=== PATIENT | female | born 1970 | race African-American/Black ===

== ENCOUNTER 2017-03-11 16:06 | Inpatient (IN) | payer MEDICAID, OTHER ==
[~2017-03-11] VITALS: Ht 165.1 cm; Wt 61.3 kg
[~2017-03-11 16:06] MED LIST: BUPR100T5 PO; OLAN5Z PO; QUET400T PO
[2017-03-11 17:31] VITALS: BP 142/80
[2017-03-11] MEDS ORDERED: ZOLPIDEM TARTRATE 10 MG TABLET PO PRN (17:45)
[2017-03-11 18:26] VITALS: BP 155/86
[2017-03-11] MEDS: QUEtiapine FUMARATE 200 MG TABLET PO SCH (20:26)
[2017-03-11] MEDS: LORazepam 2 MG TABLET PO PRN (20:26)
[2017-03-11 21:22] VITALS: BP 130/72
[2017-03-12 08:08] VITALS: BP 124/82
[2017-03-12] MEDS ORDERED: MAGNESIUM HYDROXIDE SUSPENSION 30 ML UDCUP PO PRN (09:00)
[2017-03-12] MEDS ORDERED: LOPERAMIDE HCL 2 MG CAPSULE PO PRN (09:00)
[2017-03-12] MEDS ORDERED: ONDANSETRON HCL 4 MG TABLET PO PRN (09:00)
[2017-03-12] MEDS ORDERED: PETROLATUM,WHITE 71 GM JELLY TP PRN (09:00)
[2017-03-12] MEDS ORDERED: BENZOCAINE/MENTHOL LOZENGE MM PRN (09:00)
[2017-03-12] MEDS ORDERED: IBUPROFEN 600 MG TABLET PO PRN (09:00)
[2017-03-12] MEDS ORDERED: MAG HYDROX/AL HYDROX/SIMETH ES 30 ML SUSPENSION UDCUP PO PRN (09:00)
[2017-03-12] MEDS ORDERED: ACETAMINOPHEN 325 MG TABLET PO PRN (09:00)
[2017-03-12] MEDS ORDERED: CloNIDine HCL 0.1 MG TABLET PO PRN (09:00)
[2017-03-12] MEDS ORDERED: ALBUTEROL SULFATE HFA 90 MCG/PUFF 8 GM INHALER IH PRN (09:00)
[2017-03-12] MEDS ORDERED: BACITRACIN 28.4 GM OINTMENT TP PRN (09:00)
[2017-03-12] MEDS: MULTIVITAMINS WITH MINERALS, THERAPEUTIC TABLET PO SCH (10:27)
[2017-03-12] MEDS: CHOLECALCIFEROL (VIT D3) 1,000 UNITS TABLET PO SCH (10:27)
[2017-03-12 16:03] VITALS: BP 105/61
[2017-03-12] MEDS: QUEtiapine FUMARATE 200 MG TABLET PO SCH (20:56)
[2017-03-13 06:21] VITALS: BP 115/70
[2017-03-13 08:34] LABS: BASOPHILS % (AUTO) 0.7 % (0.0-2.0); EOSINOPHILS % (AUTO) 1.3 % (1.0-6.0); HEMATOCRIT 23.5 % (36-46); HEMOGLOBIN 7.1 g/dL (12.0-16.0); LYMPHOCYTES # (AUTO) 1.2 K/uL (1.0-4.8); LYMPHOCYTES % (AUTO) 26.9 % (22.0-44.0); MEAN CORPUSCULAR HEMOGLOBIN 18.7 pg (26.0-34.0); MEAN CORPUSCULAR VOLUME 62 fL (80-100); MONOCYTES # (AUTO) 0.4 K/uL (0.1-1.0); NEUTROPHILS # (AUTO) 2.7 K/uL (1.8-7.7); NEUTROPHILS % (AUTO) 62.1 % (40.0-70.0); PLATELET COUNT (AUTO) 224 K/uL (150-450); RED BLOOD CELL COUNT(AUTO) 3.77 MIL/uL (4.00-5.20); RED CELL DISTRIBUTION WIDTH 20.3 % (11.5-14.5); WHITE BLOOD COUNT (AUTO) 4.4 K/uL (4.5-11.0)
[2017-03-13] MEDS: MULTIVITAMINS WITH MINERALS, THERAPEUTIC TABLET PO SCH (08:44)
[2017-03-13] MEDS: CHOLECALCIFEROL (VIT D3) 1,000 UNITS TABLET PO SCH (08:44)
[2017-03-13 09:18] VITALS: BP 121/75
[2017-03-13 09:21] LABS: ALANINE AMINOTRANSFERASE 18 U/L (12-78); ALBUMIN 2.9 g/dL (3.4-5.0); ANION GAP 6 mmol/L (8-16); ASPARTATE AMINOTRANSFERASE 14 U/L (15-37); BILIRUBIN,TOTAL 0.2 mg/dL (0.1-1.0); CALCIUM, TOTAL 8.6 mg/dL (8.8-10.5); CARBON DIOXIDE 32 mmol/L (22-29); CHLORIDE 105 mmol/L (98-107); CREATININE 0.68 mg/dL (0.60-1.30); GLOMERULAR FILTR. RATE CALC > 60 mL/min (>60); POTASSIUM 3.8 mmol/L (3.5-5.1); SODIUM SERUM 143 mmol/L (136-145); TOTAL PROTEIN, SERUM 5.6 g/dL (6.4-8.2); UREA NITROGEN, BLOOD 23 mg/dL (7-18)
[2017-03-13 16:25] VITALS: BP 116/67
[2017-03-13] MEDS: QUEtiapine FUMARATE 200 MG TABLET PO SCH (20:31)
[2017-03-14 04:58] VITALS: BP 123/70
[2017-03-14] MEDS: FERROUS SULFATE 325 MG EC TABLET PO SCH ×2 (06:42→16:37)
[2017-03-14 08:08] VITALS: BP 124/71
[2017-03-14] MEDS: CHOLECALCIFEROL (VIT D3) 1,000 UNITS TABLET PO SCH (08:39)
[2017-03-14] MEDS: MULTIVITAMINS WITH MINERALS, THERAPEUTIC TABLET PO SCH (08:39)
[2017-03-14 16:00] VITALS: BP 110/63
[2017-03-14] MEDS: LORazepam 2 MG TABLET PO PRN (16:37)
[2017-03-14] MEDS: QUEtiapine FUMARATE 100 MG TABLET PO PRN (16:37)
[2017-03-14] MEDS: QUEtiapine FUMARATE 200 MG TABLET PO SCH (20:22)
[2017-03-15] MEDS: FERROUS SULFATE 325 MG EC TABLET PO SCH ×3 (06:37→16:25)
[2017-03-15 08:03] LABS: BASOPHILS % (AUTO) 0.6 % (0.0-2.0); EOSINOPHILS % (AUTO) 3.7 % (1.0-6.0); HEMATOCRIT 23.8 % (36-46); HEMOGLOBIN 7.1 g/dL (12.0-16.0); LYMPHOCYTES # (AUTO) 1.6 K/uL (1.0-4.8); LYMPHOCYTES % (AUTO) 39.1 % (22.0-44.0); MEAN CORPUSCULAR HEMOGLOBIN 18.8 pg (26.0-34.0); MEAN CORPUSCULAR HGB CONC 29.9 G/dL (31.0-37.0); MEAN CORPUSCULAR VOLUME 63 fL (80-100); MONOCYTES # (AUTO) 0.3 K/uL (0.1-1.0); MONOCYTES % (AUTO) 7.2 % (2.0-9.0); NEUTROPHILS % (AUTO) 49.4 % (40.0-70.0); PLATELET COUNT (AUTO) 203 K/uL (150-450); RED CELL DISTRIBUTION WIDTH 19.7 % (11.5-14.5)
[2017-03-15] MEDS: CHOLECALCIFEROL (VIT D3) 1,000 UNITS TABLET PO SCH (08:51)
[2017-03-15] MEDS: MULTIVITAMINS WITH MINERALS, THERAPEUTIC TABLET PO SCH (08:51)
[2017-03-15] MEDS: QUEtiapine FUMARATE 100 MG TABLET PO PRN ×2 (08:51→16:26)
[2017-03-15] MEDS: LORazepam 2 MG TABLET PO PRN ×2 (08:51→16:26)
[2017-03-15] MEDS: DOCUSATE SODIUM 100 MG CAPSULE PO SCH (08:55)
[2017-03-15 09:34] LABS: RBC MORPHOLOGY COMMENT ABNORMAL RBC MORPH
[2017-03-15] MEDS: QUEtiapine FUMARATE 200 MG TABLET PO SCH (20:58)
[2017-03-16 05:35] VITALS: BP 109/80
[2017-03-16] MEDS: FERROUS SULFATE 325 MG EC TABLET PO SCH ×3 (06:42→17:03)
[2017-03-16] MEDS: DOCUSATE SODIUM 100 MG CAPSULE PO SCH (08:49)
[2017-03-16] MEDS: MULTIVITAMINS WITH MINERALS, THERAPEUTIC TABLET PO SCH (08:49)
[2017-03-16] MEDS: CHOLECALCIFEROL (VIT D3) 1,000 UNITS TABLET PO SCH (08:49)
[2017-03-16] MEDS ORDERED: FERS325 PO (15:08)
[2017-03-16] MEDS ORDERED: VITAD400 PO (15:08)
[2017-03-16] MEDS ORDERED: DSS100 PO (15:08)
[2017-03-16 16:05] VITALS: BP 124/89
== END 2017-03-16 17:05 | disposition home or self-care (01) | DRG 750 ==
LOC: B3A 17:46
DX: F25.1 Schizoaffective disorder, depressive type (principal); E55.9 Vitamin D deficiency, unspecified; F15.10 Other stimulant abuse, uncomplicated; D50.9 Iron deficiency anemia, unspecified; F17.210 Nicotine dependence, cigarettes, uncomplicated; F14.90 Cocaine use, unspecified, uncomplicated; G47.00 Insomnia, unspecified; Z71.6 Tobacco abuse counseling; Z59.0 Homelessness; Z71.51 Drug abuse counseling and surveillance of drug abuser; Z56.0 Unemployment, unspecified
CPT/HCPCS: 83540; 83550

== ENCOUNTER 2017-08-11 10:40 | Emergency (ER) | payer MEDICAID, OTHER ==
[~2017-08-11] VITALS: Ht 172.7 cm; Wt 65.9 kg
[~2017-08-11 10:40] MED LIST changes: -BUPR100T5 PO; +DSS100 PO; +FERR-89 PO; -OLAN5Z PO; +VITAD400 PO
[2017-08-11 13:45] VITALS: BP 88/47
== END 2017-08-11 15:51 | disposition left against medical advice (07) ==
LOC: EMS 10:43
DX: F91.9 Conduct disorder, unspecified (principal); F31.9 Bipolar disorder, unspecified; F20.9 Schizophrenia, unspecified; F19.90 Other psychoactive substance use, unspecified, uncomplicated
CPT/HCPCS: 99284

== ENCOUNTER 2017-10-26 14:57 | Inpatient (IN) | payer MEDICAID, OTHER ==
[~2017-10-26] VITALS: Ht 165.1 cm; Wt 59.1 kg
[2017-10-26 15:55] LABS: HEMATOCRIT 22.9 % (36-46); MEAN CORPUSCULAR HEMOGLOBIN 16.6 pg (26.0-34.0); MEAN CORPUSCULAR HGB CONC 30.3 G/dL (31.0-37.0); MEAN CORPUSCULAR VOLUME 55 fL (80-100); PLATELET COUNT (AUTO) 299 K/uL (150-450); RED CELL DISTRIBUTION WIDTH 20.6 % (11.5-14.5); WHITE BLOOD COUNT (AUTO) 6.8 K/uL (4.5-11.0)
[2017-10-26 16:06] LABS: CALCIUM, TOTAL 9.1 mg/dL (8.8-10.5); CREATININE 1.27 mg/dL (0.60-1.30); POTASSIUM 3.3 mmol/L (3.5-5.1)
[2017-10-26 16:11] LABS: ALBUMIN 4.2 g/dL (3.4-5.0); BILIRUBIN,TOTAL 0.3 mg/dL (0.1-1.0); TOTAL PROTEIN, SERUM 7.9 g/dL (6.4-8.2)
[2017-10-26 16:29] LABS: BAND NEUTROPHILS % (MANUAL) 4 % (1-5); LYMPHOCYTES % (MANUAL) 31 % (22-44); RBC MORPHOLOGY COMMENT ABNORMAL RBC MORPH; TOTAL CELLS COUNTED 100
[2017-10-26] MEDS ORDERED: LORazepam 2 MG TABLET PO PRN (18:30)
[2017-10-26] MEDS ORDERED: HALOPERIDOL 5 MG TABLET PO PRN (18:30)
[2017-10-26] MEDS ORDERED: ZOLPIDEM TARTRATE 10 MG TABLET PO PRN (18:30)
[2017-10-26] MEDS ORDERED: POTASSIUM CHLORIDE 20 MEQ ER TABLET PO ONE (19:15)
[2017-10-26] MEDS: LORazepam 2 MG TABLET PO PRN (20:12)
[2017-10-26] MEDS: ZOLPIDEM TARTRATE 10 MG TABLET PO PRN (20:13)
[2017-10-27 03:20] VITALS: BP 113/65
[2017-10-27] MEDS: HALOPERIDOL 5 MG TABLET PO PRN (03:23)
[2017-10-27] MEDS: LORazepam 2 MG TABLET PO PRN ×3 (03:23→20:53)
[2017-10-27 08:30] VITALS: BP 94/55
[2017-10-27 08:36] LABS: CHOL/HDL RATIO 1.9 (3.9-5.7); POTASSIUM 3.5 mmol/L (3.5-5.1)
[2017-10-27] MEDS ORDERED: IBUPROFEN 400 MG TABLET PO PRN (12:15)
[2017-10-27] MEDS ORDERED: ACETAMINOPHEN 325 MG TABLET PO PRN (12:15)
[2017-10-27] MEDS: FERROUS SULFATE 325 MG EC TABLET PO SCH (16:10)
[2017-10-27 16:17] VITALS: BP 110/74
[2017-10-27] MEDS: ZOLPIDEM TARTRATE 10 MG TABLET PO PRN (20:53)
[2017-10-28] MEDS: LORazepam 2 MG TABLET PO PRN ×3 (02:26→20:16)
[2017-10-28] MEDS: FERROUS SULFATE 325 MG EC TABLET PO SCH ×3 (06:26→16:43)
[2017-10-28 07:09] VITALS: BP 115/72
[2017-10-28 08:51] VITALS: BP 120/75
[2017-10-28] MEDS: QUEtiapine FUMARATE 200 MG TABLET PO SCH ×2 (08:59→16:04)
[2017-10-28] MEDS: DOCUSATE SODIUM 100 MG CAPSULE PO SCH (08:59)
[2017-10-28] MEDS: CHOLECALCIFEROL (VIT D3) 400 UNITS TABLET PO SCH (08:59)
[2017-10-28] MEDS: ZOLPIDEM TARTRATE 10 MG TABLET PO PRN (20:16)
[2017-10-29] MEDS: FERROUS SULFATE 325 MG EC TABLET PO SCH ×3 (06:41→16:14)
[2017-10-29 08:30] VITALS: BP 118/74
[2017-10-29] MEDS: CHOLECALCIFEROL (VIT D3) 400 UNITS TABLET PO SCH (09:17)
[2017-10-29] MEDS: QUEtiapine FUMARATE 200 MG TABLET PO SCH ×2 (09:17→16:14)
[2017-10-29] MEDS: DOCUSATE SODIUM 100 MG CAPSULE PO SCH (09:17)
[2017-10-29] MEDS: LORazepam 2 MG TABLET PO PRN ×2 (14:02→20:55)
[2017-10-29 16:07] VITALS: BP_SYST 109
[2017-10-30] MEDS: FERROUS SULFATE 325 MG EC TABLET PO SCH ×3 (06:45→16:14)
[2017-10-30 08:31] VITALS: BP 119/79
[2017-10-30] MEDS: CHOLECALCIFEROL (VIT D3) 400 UNITS TABLET PO SCH (08:54)
[2017-10-30] MEDS: QUEtiapine FUMARATE 200 MG TABLET PO SCH ×2 (08:54→16:14)
[2017-10-30] MEDS: DOCUSATE SODIUM 100 MG CAPSULE PO SCH (08:54)
[2017-10-30] MEDS: LORazepam 2 MG TABLET PO PRN (12:34)
[2017-10-30 16:09] VITALS: BP 106/60
[2017-10-30] MEDS: HALOPERIDOL 5 MG TABLET PO PRN (16:14)
[2017-10-30] MEDS: ZOLPIDEM TARTRATE 10 MG TABLET PO PRN (21:03)
[2017-10-31] MEDS: FERROUS SULFATE 325 MG EC TABLET PO SCH ×3 (06:31→16:40)
[2017-10-31] MEDS: QUEtiapine FUMARATE 200 MG TABLET PO SCH ×2 (08:22→16:40)
[2017-10-31] MEDS: DOCUSATE SODIUM 100 MG CAPSULE PO SCH (08:22)
[2017-10-31] MEDS: CHOLECALCIFEROL (VIT D3) 400 UNITS TABLET PO SCH (08:22)
[2017-10-31 08:32] LABS: HEMATOCRIT 24.1 % (36-46); HEMOGLOBIN 7.2 g/dL (12.0-16.0); MEAN CORPUSCULAR HEMOGLOBIN 17.2 pg (26.0-34.0); MEAN CORPUSCULAR HGB CONC 29.7 G/dL (31.0-37.0); MEAN CORPUSCULAR VOLUME 58 fL (80-100); PLATELET COUNT (AUTO) 358 K/uL (150-450); RED BLOOD CELL COUNT(AUTO) 4.17 MIL/uL (4.00-5.20); RED CELL DISTRIBUTION WIDTH 21.1 % (11.5-14.5); WHITE BLOOD COUNT (AUTO) 5.2 K/uL (4.5-11.0)
[2017-10-31 09:30] LABS: BAND NEUTROPHILS % (MANUAL) 2 % (1-5); LYMPHOCYTES % (MANUAL) 28 % (22-44); TOTAL CELLS COUNTED 100
[2017-10-31 09:33] LABS: RBC MORPHOLOGY COMMENT ABNORMAL R
[2017-10-31 16:31] VITALS: BP 118/78
[2017-11-01] MEDS: FERROUS SULFATE 325 MG EC TABLET PO SCH ×3 (06:45→16:59)
[2017-11-01] MEDS: HALOPERIDOL 5 MG TABLET PO PRN (08:12)
[2017-11-01] MEDS: QUEtiapine FUMARATE 200 MG TABLET PO SCH ×2 (08:12→16:59)
[2017-11-01] MEDS: DOCUSATE SODIUM 100 MG CAPSULE PO SCH (08:12)
[2017-11-01] MEDS: CHOLECALCIFEROL (VIT D3) 400 UNITS TABLET PO SCH (08:12)
[2017-11-01] MEDS: LORazepam 2 MG TABLET PO PRN (08:12)
[2017-11-01 08:49] VITALS: BP 116/76
[2017-11-01 17:30] VITALS: BP 105/61
[2017-11-02] MEDS: ZOLPIDEM TARTRATE 10 MG TABLET PO PRN (02:28)
[2017-11-02 05:04] VITALS: BP 122/78
[2017-11-02] MEDS: FERROUS SULFATE 325 MG EC TABLET PO SCH ×3 (06:25→17:02)
[2017-11-02 08:41] VITALS: BP 118/76
[2017-11-02] MEDS: QUEtiapine FUMARATE 200 MG TABLET PO SCH ×2 (08:41→17:02)
[2017-11-02] MEDS: CHOLECALCIFEROL (VIT D3) 400 UNITS TABLET PO SCH (08:41)
[2017-11-02] MEDS: DOCUSATE SODIUM 100 MG CAPSULE PO SCH (08:41)
[2017-11-02 16:00] VITALS: BP 117/67
[2017-11-03 06:25] VITALS: BP 116/76
[2017-11-03] MEDS: FERROUS SULFATE 325 MG EC TABLET PO SCH ×3 (06:34→16:20)
[2017-11-03] MEDS: CHOLECALCIFEROL (VIT D3) 400 UNITS TABLET PO SCH (08:21)
[2017-11-03] MEDS: QUEtiapine FUMARATE 200 MG TABLET PO SCH ×2 (08:21→16:20)
[2017-11-03] MEDS: DOCUSATE SODIUM 100 MG CAPSULE PO SCH (08:21)
[2017-11-03 08:30] VITALS: BP 118/70
[2017-11-03] MEDS: LORazepam 2 MG TABLET PO PRN (12:33)
[2017-11-03 16:50] VITALS: BP 110/73
[2017-11-04 06:19] VITALS: BP 113/78
[2017-11-04] MEDS: FERROUS SULFATE 325 MG EC TABLET PO SCH ×3 (06:23→16:53)
[2017-11-04] MEDS: DOCUSATE SODIUM 100 MG CAPSULE PO SCH (08:16)
[2017-11-04] MEDS: QUEtiapine FUMARATE 200 MG TABLET PO SCH ×2 (08:16→16:53)
[2017-11-04] MEDS: CHOLECALCIFEROL (VIT D3) 400 UNITS TABLET PO SCH (08:16)
[2017-11-04 08:19] VITALS: BP 111/72
[2017-11-04] MEDS: LORazepam 2 MG TABLET PO PRN ×2 (12:25→16:53)
[2017-11-04 17:26] VITALS: BP 105/64
[2017-11-05 02:51] VITALS: BP 108/69
[2017-11-05] MEDS: LORazepam 2 MG TABLET PO PRN (04:07)
[2017-11-05] MEDS: FERROUS SULFATE 325 MG EC TABLET PO SCH ×2 (06:47→11:18)
[2017-11-05 08:00] VITALS: BP 119/78
[2017-11-05] MEDS: QUEtiapine FUMARATE 200 MG TABLET PO SCH (08:31)
[2017-11-05] MEDS: DOCUSATE SODIUM 100 MG CAPSULE PO SCH (08:31)
[2017-11-05] MEDS: CHOLECALCIFEROL (VIT D3) 400 UNITS TABLET PO SCH (08:31)
== END 2017-11-05 15:45 | disposition home or self-care (01) | DRG 750 ==
LOC: EMS 14:58 → B3A 18:54
PROVIDERS: ADMIT Psychiatry & Neurology Psychiatry; ATTEND Psychiatry & Neurology Psychiatry
DX: F20.0 Paranoid schizophrenia (principal); R45.851 Suicidal ideations; Z59.0 Homelessness; E55.9 Vitamin D deficiency, unspecified; D64.9 Anemia, unspecified; E87.6 Hypokalemia; K59.09 Other constipation; F32.9 Major depressive disorder, single episode, unspecified
CPT/HCPCS: 84132; 99285; G0480

== ENCOUNTER 2018-06-12 20:52 | Emergency (ER) | payer MEDICAID, OTHER ==
[~2018-06-12] VITALS: Ht 165.1 cm; Wt 75.0 kg
[2018-06-12 21:04] VITALS: BP 150/100
[2018-06-12] MEDS ORDERED: BUPR-93 PO (21:15)
[2018-06-12 21:56] LABS: BASOPHILS % (AUTO) 0.5 % (0.0-2.0); EOSINOPHILS % (AUTO) 0.5 % (1.0-6.0); HEMATOCRIT 34.2 % (36-46); HEMOGLOBIN 10.9 g/dL (12.0-16.0); LYMPHOCYTES # (AUTO) 1.3 K/uL (1.0-4.8); LYMPHOCYTES % (AUTO) 15.8 % (22.0-44.0); MEAN CORPUSCULAR HGB CONC 31.9 G/dL (31.0-37.0); MEAN CORPUSCULAR VOLUME 66 fL (80-100); MONOCYTES # (AUTO) 1.1 K/uL (0.1-1.0); MONOCYTES % (AUTO) 12.9 % (2.0-9.0); NEUTROPHILS % (AUTO) 70.3 % (40.0-70.0); PLATELET COUNT (AUTO) 228 K/uL (150-450); RED BLOOD CELL COUNT(AUTO) 5.19 MIL/uL (4.00-5.20); RED CELL DISTRIBUTION WIDTH 24.5 % (11.5-14.5)
[2018-06-12 22:06] LABS: ANION GAP 12 mmol/L (8-16); CALCIUM, TOTAL 8.8 mg/dL (8.8-10.5); CARBON DIOXIDE 25 mmol/L (22-29); CHLORIDE 105 mmol/L (98-107); CREATININE 1.72 mg/dL (0.60-1.30); GLOMERULAR FILTR. RATE CALC 39 mL/min (>60); GLUCOSE,RANDOM 126 mg/dL (70-110); POTASSIUM 3.8 mmol/L (3.5-5.1); SODIUM SERUM 142 mmol/L (136-145); UREA NITROGEN, BLOOD 44 mg/dL (7-18)
[2018-06-12 22:17] LABS: ALANINE AMINOTRANSFERASE 39 U/L (12-78); ALBUMIN 3.9 g/dL (3.4-5.0); ALKALINE PHOSPHATASE 81 U/L (46-116); ASPARTATE AMINOTRANSFERASE 29 U/L (15-37); BILIRUBIN,TOTAL 0.2 mg/dL (0.1-1.0); TOTAL PROTEIN, SERUM 7.8 g/dL (6.4-8.2)
[2018-06-13] MEDS ORDERED: QUEtiapine FUMARATE 100 MG TABLET PO ONE (02:15)
== END 2018-06-13 03:35 | disposition home or self-care (01) ==
LOC: EMS 20:53
DX: S00.12XA Contusion of left eyelid and periocular area, initial encounter (principal); B35.4 Tinea corporis; E86.0 Dehydration; F15.10 Other stimulant abuse, uncomplicated; F20.9 Schizophrenia, unspecified; Z59.0 Homelessness; Z79.899 Other long term (current) drug therapy; X58.XXXA Exposure to other specified factors, initial encounter; Y93.89 Activity, other specified; Y92.89 Other specified places as the place of occurrence of the external cause; Y99.8 Other external cause status
CPT/HCPCS: 36415; 80053; 85025; 99284; G0480

== ENCOUNTER 2020-03-25 19:46 | Emergency (ER) | payer OTHER ==
[~2020-03-25] VITALS: Ht 167.6 cm; Wt 74.5 kg
[~2020-03-25 19:46] MED LIST changes: +BUPR-93 PO; -DSS100 PO; -FERR-89 PO; -VITAD400 PO
[2020-03-25 20:51] LABS: BASOPHILS % (AUTO) 0.5 % (0.0-2.0); EOSINOPHILS % (AUTO) 1.7 % (1.0-6.0); HEMATOCRIT 35.6 % (36-46); HEMOGLOBIN 11.6 g/dL (12.0-16.0); LYMPHOCYTES # (AUTO) 1.9 K/uL (1.0-4.8); LYMPHOCYTES % (AUTO) 26.2 % (22.0-44.0); MEAN CORPUSCULAR HEMOGLOBIN 25.4 pg (26.0-34.0); MEAN CORPUSCULAR HGB CONC 32.5 G/dL (31.0-37.0); MEAN CORPUSCULAR VOLUME 78 fL (80-100); MONOCYTES # (AUTO) 0.9 K/uL (0.1-1.0); NEUTROPHILS # (AUTO) 4.2 K/uL (1.8-7.7); NEUTROPHILS % (AUTO) 58.6 % (40.0-70.0); PLATELET COUNT (AUTO) 272 K/uL (150-450); RED BLOOD CELL COUNT(AUTO) 4.56 MIL/uL (4.00-5.20); RED CELL DISTRIBUTION WIDTH 15.7 % (11.5-14.5)
[2020-03-25 21:09] LABS: ALANINE AMINOTRANSFERASE 17 U/L (12-78); ALBUMIN 3.6 g/dL (3.4-5.0); ALKALINE PHOSPHATASE 98 U/L (46-116); ANION GAP 8 mmol/L (8-16); ASPARTATE AMINOTRANSFERASE 13 U/L (15-37); BILIRUBIN,TOTAL 0.4 mg/dL (0.1-1.0); CALCIUM, TOTAL 9.6 mg/dL (8.8-10.5); CARBON DIOXIDE 31 mmol/L (22-29); CHLORIDE 100 mmol/L (98-107); CREATININE 1.56 mg/dL (0.60-1.30); GLOMERULAR FILTR. RATE CALC 43 mL/min (>60); GLUCOSE,RANDOM 103 mg/dL (70-110); HCG,QUANTITATIVE 4 mIU/mL (0-6); LIPASE 72 U/L (73-393); SODIUM SERUM 139 mmol/L (136-145); TOTAL PROTEIN, SERUM 7.6 g/dL (6.4-8.2); UREA NITROGEN, BLOOD 20 mg/dL (7-18)
[2020-03-25 21:11] LABS: POTASSIUM 2.8 mmol/L (3.5-5.1)
[2020-03-25] MEDS ORDERED: POTASSIUM CHLORIDE 20 MEQ ER TABLET PO ONE (21:15)
[2020-03-25 23:42] VITALS: BP 125/94
[2020-03-25] MEDS ORDERED: HALOPERIDOL 5 MG TABLET PO ONE (23:45)
== END 2020-03-26 00:05 | disposition home or self-care (01) ==
LOC: EMS 19:46
DX: F20.9 Schizophrenia, unspecified (principal); R41.82 Altered mental status, unspecified; F15.90 Other stimulant use, unspecified, uncomplicated; Z59.0 Homelessness; Z79.899 Other long term (current) drug therapy
CPT/HCPCS: 80053; 83690; 84702; 85025; 99284; G0480

== ENCOUNTER 2021-03-09 09:56 | Inpatient (IN) | payer MEDICAID ==
[~2021-03-09] VITALS: Ht 165.1 cm; Wt 64.4 kg
[2021-03-09] MEDS ORDERED: TUBERCULIN, PURIFIED PROTEIN DERIVATIVE 5 TU/0.1 ML SYRINGE ID ONE (11:30)
[2021-03-09] MEDS ORDERED: MAG HYDROX/AL HYDROX/SIMETH ES 30 ML SUSPENSION UDCUP PO PRN (11:30)
[2021-03-09] MEDS ORDERED: ACETAMINOPHEN 325 MG TABLET PO PRN (11:30)
[2021-03-09] MEDS ORDERED: ZOLPIDEM TARTRATE 10 MG TABLET PO PRN (11:30)
[2021-03-09] MEDS ORDERED: LOPERAMIDE HCL 2 MG CAPSULE PO PRN (11:30)
[2021-03-09] MEDS ORDERED: GuaiFENesin/D-METHORPHAN [SUGAR-FREE] 200-20MG/10 ML SYRUP UDCUP PO PRN (11:30)
[2021-03-09] MEDS ORDERED: RisperiDONE 1 MG TABLET PO PRN (11:30)
[2021-03-09] MEDS ORDERED: PROMETHAZINE HCL 25 MG TABLET PO PRN (11:30)
[2021-03-09] MEDS ORDERED: OLANZapine 5 MG RAPDIS TABLET PO PRN (11:30)
[2021-03-09] MEDS ORDERED: HydrOXYzine PAMOATE 50 MG CAPSULE PO PRN (11:30)
[2021-03-09] MEDS ORDERED: MAGNESIUM HYDROXIDE SUSPENSION 30 ML UDCUP PO PRN (11:30)
[2021-03-09 11:49] VITALS: BP 139/90
[2021-03-09 14:59] LABS: COVID AG,FIA SOURCE NASOPHARYNGEAL
[2021-03-09 18:21] VITALS: BP 144/88
[2021-03-09] MEDS: MELATONIN 5 MG TABLET PO SCH (20:39)
[2021-03-09] MEDS: THIAMINE 100 MG TABLET PO SCH (20:39)
[2021-03-09] MEDS ORDERED: RisperiDONE 2 MG TABLET PO SCH (21:00)
[2021-03-10 00:26] VITALS: BP 139/85
[2021-03-10 08:40] VITALS: BP 150/80
[2021-03-10] MEDS: FOLIC ACID 1 MG TABLET PO SCH (09:00)
[2021-03-10] MEDS: MULTIVITAMINS WITH MINERALS, THERAPEUTIC TABLET PO SCH (09:00)
[2021-03-10] MEDS: OMEGA-3/DHA/EPA/FISH OIL 1,000 MG CAPSULE PO SCH (09:00)
[2021-03-10] MEDS ORDERED: BuPROPion HCL XL 150 MG ER TABLET PO SCH (09:00)
[2021-03-10] MEDS: THIAMINE 100 MG TABLET PO SCH ×2 (09:00→16:28)
[2021-03-10] MEDS: NALTREXONE HCL 50 MG TABLET PO SCH (09:00)
[2021-03-10] MEDS: LORazepam 2 MG TABLET PO PRN (16:28)
[2021-03-10 16:37] VITALS: BP 118/66
[2021-03-10] MEDS: DIVALPROEX SODIUM 500 MG ER TABLET PO SCH (21:00)
[2021-03-10] MEDS ORDERED: RisperiDONE 3 MG TABLET PO SCH (21:00)
[2021-03-10] MEDS: MELATONIN 5 MG TABLET PO SCH (21:00)
[2021-03-11 02:16] VITALS: BP 110/80
[2021-03-11 08:22] VITALS: BP 110/69
[2021-03-11] MEDS: NALTREXONE HCL 50 MG TABLET PO SCH (08:43)
[2021-03-11] MEDS: FOLIC ACID 1 MG TABLET PO SCH (08:43)
[2021-03-11] MEDS: OMEGA-3/DHA/EPA/FISH OIL 1,000 MG CAPSULE PO SCH (08:44)
[2021-03-11] MEDS: MULTIVITAMINS WITH MINERALS, THERAPEUTIC TABLET PO SCH (08:44)
[2021-03-11] MEDS: THIAMINE 100 MG TABLET PO SCH ×2 (08:44→16:21)
[2021-03-11] MEDS: LORazepam 2 MG TABLET PO PRN (08:44)
[2021-03-11] MEDS ORDERED: PALIPERIDONE 1.5 MG ER TABLET PO PRN (14:30)
[2021-03-11] MEDS ORDERED: PALIPERIDONE PALMITATE 234 MG/1.5 ML SYRINGE IM ONE (15:00)
[2021-03-11 16:12] VITALS: BP 116/60
[2021-03-11] MEDS: PALIPERIDONE 3 MG ER TABLET PO SCH (20:29)
[2021-03-11] MEDS: MELATONIN 5 MG TABLET PO SCH (20:29)
[2021-03-11] MEDS: DIVALPROEX SODIUM 500 MG ER TABLET PO SCH (20:30)
[2021-03-12 02:00] VITALS: BP 112/68
[2021-03-12 08:30] VITALS: BP 138/78
[2021-03-12] MEDS: NALTREXONE HCL 50 MG TABLET PO SCH ×2 (09:00→09:43)
[2021-03-12] MEDS: THIAMINE 100 MG TABLET PO SCH ×3 (09:00→16:46)
[2021-03-12] MEDS: OMEGA-3/DHA/EPA/FISH OIL 1,000 MG CAPSULE PO SCH ×2 (09:00→09:42)
[2021-03-12] MEDS: FOLIC ACID 1 MG TABLET PO SCH ×2 (09:00→09:42)
[2021-03-12] MEDS: MULTIVITAMINS WITH MINERALS, THERAPEUTIC TABLET PO SCH ×2 (09:00→09:42)
[2021-03-12] MEDS: LORazepam 2 MG TABLET PO PRN ×2 (09:42→16:46)
[2021-03-12 16:15] VITALS: BP 118/61
[2021-03-12] MEDS: PALIPERIDONE 3 MG ER TABLET PO SCH (19:53)
[2021-03-12] MEDS: MELATONIN 5 MG TABLET PO SCH (19:53)
[2021-03-12] MEDS: DIVALPROEX SODIUM 500 MG ER TABLET PO SCH (19:54)
[2021-03-13 06:04] VITALS: BP 117/82
[2021-03-13 08:22] VITALS: BP 118/82
[2021-03-13] MEDS: THIAMINE 100 MG TABLET PO SCH ×2 (09:00→17:00)
[2021-03-13] MEDS: MULTIVITAMINS WITH MINERALS, THERAPEUTIC TABLET PO SCH (09:00)
[2021-03-13] MEDS: NALTREXONE HCL 50 MG TABLET PO SCH (09:00)
[2021-03-13] MEDS: OMEGA-3/DHA/EPA/FISH OIL 1,000 MG CAPSULE PO SCH (09:00)
[2021-03-13] MEDS: FOLIC ACID 1 MG TABLET PO SCH (09:00)
[2021-03-13 16:15] VITALS: BP 140/92
[2021-03-13] MEDS ORDERED: DiphenhydrAMINE HCL 50 MG/ML VIAL ONE (17:52)
[2021-03-13] MEDS ORDERED: LORazepam 2 MG/ML VIAL ONE (17:52)
[2021-03-13] MEDS ORDERED: HALOPERIDOL LACTATE 5 MG/ML VIAL ONE (17:53)
[2021-03-13] MEDS ORDERED: HALOPERIDOL LACTATE 5 MG/ML VIAL IM ONE (18:00)
[2021-03-13] MEDS ORDERED: LORazepam 2 MG/ML VIAL IM ONE (18:00)
[2021-03-13] MEDS ORDERED: DiphenhydrAMINE HCL 50 MG/ML VIAL IM ONE (18:00)
[2021-03-13] MEDS: DIVALPROEX SODIUM 500 MG ER TABLET PO SCH (21:00)
[2021-03-13] MEDS: PALIPERIDONE 6 MG ER TABLET PO SCH (21:00)
[2021-03-13] MEDS: MELATONIN 5 MG TABLET PO SCH (21:00)
[2021-03-14 00:10] VITALS: BP 128/89
[2021-03-14 08:18] VITALS: BP 119/71
[2021-03-14] MEDS: NALTREXONE HCL 50 MG TABLET PO SCH (09:43)
[2021-03-14] MEDS: THIAMINE 100 MG TABLET PO SCH ×2 (09:43→16:47)
[2021-03-14] MEDS: MULTIVITAMINS WITH MINERALS, THERAPEUTIC TABLET PO SCH (09:43)
[2021-03-14] MEDS: OMEGA-3/DHA/EPA/FISH OIL 1,000 MG CAPSULE PO SCH (09:43)
[2021-03-14] MEDS: FOLIC ACID 1 MG TABLET PO SCH (09:43)
[2021-03-14] MEDS: LORazepam 2 MG TABLET PO PRN (09:43)
[2021-03-14 16:16] VITALS: BP 109/71
[2021-03-14] MEDS: PALIPERIDONE 6 MG ER TABLET PO SCH (20:35)
[2021-03-14] MEDS: DIVALPROEX SODIUM 500 MG ER TABLET PO SCH (20:35)
[2021-03-14] MEDS: MELATONIN 5 MG TABLET PO SCH (20:36)
[2021-03-15 01:08] VITALS: BP 140/97
[2021-03-15 07:55] LABS: BASOPHILS % (AUTO) 0.5 % (0.0-2.0); EOSINOPHILS % (AUTO) 2.9 % (1.0-6.0); HEMATOCRIT 31.3 % (36-46); HEMOGLOBIN 10.3 g/dL (12.0-16.0); LYMPHOCYTES # (AUTO) 1.8 K/uL (1.0-4.8); LYMPHOCYTES % (AUTO) 38.7 % (22.0-44.0); MEAN CORPUSCULAR HEMOGLOBIN 25.9 pg (26.0-34.0); MEAN CORPUSCULAR VOLUME 79 fL (80-100); MONOCYTES # (AUTO) 0.4 K/uL (0.1-1.0); MONOCYTES % (AUTO) 8.6 % (2.0-9.0); NEUTROPHILS # (AUTO) 2.3 K/uL (1.8-7.7); NEUTROPHILS % (AUTO) 49.3 % (40.0-70.0); PLATELET COUNT (AUTO) 175 K/uL (150-450); RED BLOOD CELL COUNT(AUTO) 3.98 MIL/uL (4.00-5.20); RED CELL DISTRIBUTION WIDTH 14.7 % (11.5-14.5)
[2021-03-15 08:03] LABS: HEMOGLOBIN A1C 5.7 % (3.8-5.6)
[2021-03-15 08:17] LABS: ALANINE AMINOTRANSFERASE 18 U/L (12-78); ALKALINE PHOSPHATASE 99 U/L (46-116); ANION GAP 5 mmol/L (8-16); ASPARTATE AMINOTRANSFERASE 9 U/L (15-37); BILIRUBIN,TOTAL 0.1 mg/dL (0.1-1.0); CARBON DIOXIDE 31 mmol/L (22-29); CHLORIDE 104 mmol/L (98-107); CHOL/HDL RATIO 3.4 (3.9-5.7); CHOLESTEROL 160 mg/dL (131-200); CREATININE 0.78 mg/dL (0.60-1.30); FREE T4 (FREE THYROXINE) 0.68 ng/dL (0.76-1.46); GLOMERULAR FILTR. RATE CALC > 60 mL/min (>60); GLUCOSE,RANDOM 93 mg/dL (70-110); HDL CHOLESTEROL 47 mg/dL (40-60); LDL CHOL (CALC.) 98 mg/dL (0-130); SODIUM SERUM 140 mmol/L (136-145); THYROID STIMULATING HORMONE 2.36 uIU/mL (0.36-3.74); TOTAL PROTEIN, SERUM 6.2 g/dL (6.4-8.2); TRIGLYCERIDES 77 mg/dL (15-150); UREA NITROGEN, BLOOD 23 mg/dL (7-18)
[2021-03-15] MEDS: LORazepam 2 MG TABLET PO PRN ×2 (08:30→16:34)
[2021-03-15] MEDS: NALTREXONE HCL 50 MG TABLET PO SCH (08:30)
[2021-03-15] MEDS: MULTIVITAMINS WITH MINERALS, THERAPEUTIC TABLET PO SCH (08:30)
[2021-03-15] MEDS: THIAMINE 100 MG TABLET PO SCH ×2 (08:30→16:34)
[2021-03-15] MEDS: OMEGA-3/DHA/EPA/FISH OIL 1,000 MG CAPSULE PO SCH (08:30)
[2021-03-15] MEDS: FOLIC ACID 1 MG TABLET PO SCH (08:30)
[2021-03-15] MEDS ORDERED: PALIPERIDONE PALMITATE 156 MG/ML SYRINGE IM ONE (09:00)
[2021-03-15] MEDS: FERROUS SULFATE 325 MG EC TABLET PO SCH (11:58)
[2021-03-15 17:38] VITALS: BP 121/72
[2021-03-15] MEDS: PALIPERIDONE 6 MG ER TABLET PO SCH (20:04)
[2021-03-15] MEDS: MELATONIN 5 MG TABLET PO SCH (20:04)
[2021-03-15] MEDS: DIVALPROEX SODIUM 500 MG ER TABLET PO SCH (20:04)
[2021-03-16 01:24] VITALS: BP 126/78
[2021-03-16] MEDS: FERROUS SULFATE 325 MG EC TABLET PO SCH (06:33)
[2021-03-16] MEDS ORDERED: PENICILLIN G BENZATHINE LA 2,400,000 UNITS/4 ML SYRINGE IM ONE (09:00)
[2021-03-16] MEDS: FOLIC ACID 1 MG TABLET PO SCH (09:37)
[2021-03-16] MEDS: NALTREXONE HCL 50 MG TABLET PO SCH (09:37)
[2021-03-16] MEDS: MULTIVITAMINS WITH MINERALS, THERAPEUTIC TABLET PO SCH (09:37)
[2021-03-16] MEDS: THIAMINE 100 MG TABLET PO SCH ×2 (09:37→16:14)
[2021-03-16] MEDS: OMEGA-3/DHA/EPA/FISH OIL 1,000 MG CAPSULE PO SCH (09:37)
[2021-03-16] MEDS: LORazepam 2 MG TABLET PO PRN ×2 (10:26→16:24)
[2021-03-16 16:29] VITALS: BP 132/81
[2021-03-16] MEDS: DIVALPROEX SODIUM 500 MG ER TABLET PO SCH (21:15)
[2021-03-16] MEDS: MELATONIN 5 MG TABLET PO SCH (21:15)
[2021-03-17 00:54] VITALS: BP 126/84
[2021-03-17] MEDS: FERROUS SULFATE 325 MG EC TABLET PO SCH (07:00)
[2021-03-17 08:18] VITALS: BP 125/76
[2021-03-17] MEDS: OMEGA-3/DHA/EPA/FISH OIL 1,000 MG CAPSULE PO SCH (08:53)
[2021-03-17] MEDS: MULTIVITAMINS WITH MINERALS, THERAPEUTIC TABLET PO SCH (08:53)
[2021-03-17] MEDS: THIAMINE 100 MG TABLET PO SCH ×2 (08:53→16:26)
[2021-03-17] MEDS: NALTREXONE HCL 50 MG TABLET PO SCH (08:53)
[2021-03-17] MEDS: FOLIC ACID 1 MG TABLET PO SCH (08:53)
[2021-03-17] MEDS: LORazepam 2 MG TABLET PO PRN (11:29)
[2021-03-17 16:36] VITALS: BP 134/86
[2021-03-17] MEDS: DIVALPROEX SODIUM 500 MG ER TABLET PO SCH (20:16)
[2021-03-17] MEDS: MELATONIN 5 MG TABLET PO SCH (20:16)
[2021-03-18 00:51] VITALS: BP 108/76
[2021-03-18 04:56] VITALS: BP 148/98
[2021-03-18] MEDS: LORazepam 2 MG TABLET PO PRN ×3 (04:56→16:51)
[2021-03-18] MEDS: FERROUS SULFATE 325 MG EC TABLET PO SCH (07:03)
[2021-03-18 08:25] VITALS: BP 104/68
[2021-03-18] MEDS: MULTIVITAMINS WITH MINERALS, THERAPEUTIC TABLET PO SCH (08:50)
[2021-03-18] MEDS: OMEGA-3/DHA/EPA/FISH OIL 1,000 MG CAPSULE PO SCH (08:50)
[2021-03-18] MEDS: FOLIC ACID 1 MG TABLET PO SCH (08:50)
[2021-03-18] MEDS: NALTREXONE HCL 50 MG TABLET PO SCH (08:50)
[2021-03-18] MEDS: THIAMINE 100 MG TABLET PO SCH ×2 (08:51→16:50)
[2021-03-18 09:30] VITALS: BP 110/72
[2021-03-18 16:11] VITALS: BP 124/75
[2021-03-18] MEDS: DIVALPROEX SODIUM 500 MG ER TABLET PO SCH (20:43)
[2021-03-18] MEDS: MELATONIN 5 MG TABLET PO SCH (20:43)
[2021-03-19 01:43] VITALS: BP 118/72
[2021-03-19] MEDS: FERROUS SULFATE 325 MG EC TABLET PO SCH (06:58)
[2021-03-19] MEDS: FOLIC ACID 1 MG TABLET PO SCH (08:13)
[2021-03-19] MEDS: LORazepam 2 MG TABLET PO PRN ×3 (08:14→21:56)
[2021-03-19] MEDS: NALTREXONE HCL 50 MG TABLET PO SCH (08:14)
[2021-03-19] MEDS: MULTIVITAMINS WITH MINERALS, THERAPEUTIC TABLET PO SCH (08:14)
[2021-03-19] MEDS: THIAMINE 100 MG TABLET PO SCH (08:14)
[2021-03-19] MEDS: OMEGA-3/DHA/EPA/FISH OIL 1,000 MG CAPSULE PO SCH (08:14)
[2021-03-19] MEDS ORDERED: FLUCONAZOLE 200 MG TABLET PO ONE (08:15)
[2021-03-19 08:27] VITALS: BP 119/71
[2021-03-19] MEDS: MetroNIDAZOLE 500 MG TABLET PO SCH ×2 (12:53→15:59)
[2021-03-19 16:20] VITALS: BP 138/80
[2021-03-19] MEDS ORDERED: PALIPERIDONE PALMITATE 156 MG/ML SYRINGE IM ONE (17:00)
[2021-03-19] MEDS: DIVALPROEX SODIUM 500 MG ER TABLET PO SCH (20:30)
[2021-03-19] MEDS: MELATONIN 5 MG TABLET PO SCH (20:30)
[2021-03-20 00:05] VITALS: BP 122/73
[2021-03-20] MEDS: FERROUS SULFATE 325 MG EC TABLET PO SCH (06:53)
[2021-03-20] MEDS ORDERED: FLUCONAZOLE 100 MG TABLET PO SCH (09:00)
[2021-03-20] MEDS: MetroNIDAZOLE 500 MG TABLET PO SCH (09:03)
[2021-03-20] MEDS: MULTIVITAMINS WITH MINERALS, THERAPEUTIC TABLET PO SCH (09:03)
[2021-03-20] MEDS: LORazepam 2 MG TABLET PO PRN (09:04)
[2021-03-20] MEDS: OMEGA-3/DHA/EPA/FISH OIL 1,000 MG CAPSULE PO SCH (09:04)
[2021-03-20] MEDS: NALTREXONE HCL 50 MG TABLET PO SCH (09:04)
[2021-03-20] MEDS ORDERED: NALT50TA PO (14:40)
[2021-03-20] MEDS ORDERED: DIVA-80 PO (14:40)
[2021-03-20] MEDS ORDERED: MELA5TAB3 PO (14:40)
[2021-03-20] MEDS ORDERED: OMEG-135 PO (14:40)
[2021-03-20] MEDS ORDERED: PALI117D IM (14:40)
[2021-03-20] MEDS ORDERED: FLUC100T PO (15:43)
[2021-03-20] MEDS ORDERED: METR500 PO (15:43)
[2021-03-20 16:22] VITALS: BP 136/81
== END 2021-03-20 21:45 | disposition home or self-care (01) | DRG 750 ==
LOC: B2S 18:10 → EDSTATUS 18:25 → B2S 20:08 → B3A 03-10 11:23
PROVIDERS: ADMIT Psychiatry & Neurology Psychiatry; ATTEND Psychiatry & Neurology Psychiatry
DX: F25.9 Schizoaffective disorder, unspecified (principal); Z59.0 Homelessness; F12.90 Cannabis use, unspecified, uncomplicated; Z20.822 Contact with and (suspected) exposure to COVID-19; J44.9 Chronic obstructive pulmonary disease, unspecified; Z55.9 Problems related to education and literacy, unspecified; Z65.3 Problems related to other legal circumstances; Z87.891 Personal history of nicotine dependence; Z91.19 Patient's noncompliance with other medical treatment and regimen
CPT/HCPCS: 80053; 80061; 80164; 83036; 84439; 84443; 85025; 86592; 86593; 86780; 87426; A9575; J0561; J1200; J1630; J2060

== ENCOUNTER 2025-08-12 17:29 | Emergency (ER) | payer MEDICAID, OTHER ==
[~2025-08-12] VITALS: Ht 165.1 cm; Wt 60.0 kg
[~2025-08-12 17:29] MED LIST changes: -BUPR-93 PO; +DIVA-153 PO; +FLUC100T68 PO; +MELA5TAB40 PO; +METR500 PO; +NALT50TA6 PO; +OMEG-135 PO; +PALI117D IM; -QUET400T PO
[2025-08-12 17:41] VITALS: BP 132/84; PULSE 92; RESP 18; TEMP 97.4; O2SAT 98
[2025-08-12] MEDS ORDERED: QUET300T2 PO (20:16)
== END 2025-08-13 00:56 | disposition home or self-care (01) ==
LOC: EMS 17:29
DX: F25.9 Schizoaffective disorder, unspecified (principal); R41.82 Altered mental status, unspecified; F15.90 Other stimulant use, unspecified, uncomplicated; Z59.00 Homelessness unspecified
CPT/HCPCS: 99283; Z7502